=== PATIENT | female | born 1965 | race Asian ===

== ENCOUNTER 2019-04-13 17:05 | Emergency (ER) | payer OTHER ==
[~2019-04-13] VITALS: Ht 165.1 cm; Wt 57.2 kg
[2019-04-13 18:05] LABS: PLATELET COUNT 159 K/uL (152-353)
[2019-04-13 18:30] LABS: POTASSIUM 3.7 mmol/L (3.6-5.2)
[2019-04-13 20:01] VITALS: BP 107/74; TEMP 97.5
[2019-04-13] MEDS ORDERED: ZIPR20CA PO (20:15)
[2019-04-13] MEDS ORDERED: BANOPHEN25 M1 PO (20:16)
[2019-04-13] MEDS ORDERED: DIVA250T PO (20:16)
[2019-04-13] MEDS ORDERED: DIVALPROEX500 M1 PO (20:17)
[2019-04-13] MEDS ORDERED: ACID CONTROL MA20 MG PO (20:18)
[2019-04-13] MEDS ORDERED: GAVILA1 PO (20:18)
[2019-04-13] MEDS ORDERED: TOPAMAX100 MG PO (20:19)
[2019-04-13] MEDS ORDERED: XANAX2 MG PO (20:20)
[2019-04-13] MEDS ORDERED: TEMA15CA19 PO (20:20)
== END 2019-04-13 19:20 | disposition other institution (70) ==
LOC: ED 17:12
PROVIDERS: Family Medicine
DX: F03.91 Unspecified dementia, unspecified severity, with behavioral disturbance (principal); F32.89 Other specified depressive episodes; R00.1 Bradycardia, unspecified; Z04.6 Encounter for general psychiatric examination, requested by authority
CPT/HCPCS: 80053; 81000; 85027; 93005; 99285